=== PATIENT | male | born 1975 | race Caucasian/White ===

== ENCOUNTER 2017-02-08 00:40 | Inpatient (IN) | payer MEDICAID ==
[~2017-02-08] VITALS: Ht 188 cm; Wt 72.4 kg
[~2017-02-08 00:40] MED LIST: ACET325T14 PO; ASPI-515 PO; ENOX40SY4 SQ; FOLI-17 PO; NICO1PAT5 TD; PANT40TA5 PO; THIA100T6 PO
[2017-02-08] MEDS ORDERED: MIDAZOLAM 1 MG/ML, 5ML ONE (00:44)
[2017-02-08] MEDS ORDERED: LORazepam 2 MG/ML, 1ML ONE ×4 (00:50→02:18)
[2017-02-08] MEDS: LORazepam 2 MG/ML, 1ML IVPush PRN ×4 (00:52→01:32)
[2017-02-08] MEDS ORDERED: MAGNESIUM SULFATE 1 GM, THIAMINE 100 MG, FOLIC ACID 1 MG, MVI ADULT 10 ML in SODIUM CHL... IV ONE (01:00)
[2017-02-08] MEDS ORDERED: SODIUM CHLORIDE 0.9% 1,000ML IVBOLUS ONE ×3 (01:00→03:00)
[2017-02-08] MEDS ORDERED: SODIUM CHLORIDE FLUSH 10ML SYR IVF ONE (01:00)
[2017-02-08] MEDS ORDERED: MIDAZOLAM 1 MG/ML, 5ML IM ONE (01:00)
[2017-02-08 01:27] LABS: ASPARTATE AMINO TRANSFERASE 198 U/L (15-37); BLOOD UREA NITROGEN 8 mg/dL (7-18)
[2017-02-08] MEDS ORDERED: DILTIAZEM 5 MG/ML, 5ML IVPush ONE (01:30)
[2017-02-08] MEDS ORDERED: LORazepam 2 MG/ML, 1ML IVPush ONE ×2 (01:30→02:30)
[2017-02-08] MEDS ORDERED: SODIUM CHLORIDE 3% 500 ML IV PRN (01:30)
[2017-02-08] MEDS ORDERED: DILTIAZEM 5 MG/ML, 5ML ONE (01:42)
[2017-02-08] MEDS: DILTIAZEM 125 MG in SODIUM CHLORIDE 0.9% 100 ML IV PRN ×3 (01:43→12:18)
[2017-02-08] MEDS ORDERED: NS + 40MEQ KCL 0 ML IV ONE (01:46)
[2017-02-08 01:47] LABS: HEMATOCRIT 44.5 % (39.2-51.8); HEMOGLOBIN 14.8 g/dL (13.7-18.0); WHITE BLOOD COUNT 7.1 x10^3/uL (3.4-10)
[2017-02-08 01:58] LABS: DIFF TOTAL CELLS COUNTED 100 CELL DIFF
[2017-02-08] MEDS ORDERED: POTASSIUM CHLORIDE 40 MEQ in SODIUM CHLORIDE 0.9% 500 ML IV ONE (02:00)
[2017-02-08 02:21] LABS: VERIFY COUNTS? YES
[2017-02-08 02:24] LABS: LARGE PLATELETS 1+
[2017-02-08] MEDS: POTASSIUM CHLORIDE 20 MEQ, MVI ADULT 10 ML, FOLIC ACID 1 MG, MAGNESIUM SULFATE 1 GM in ... IV SCH (02:47)
[2017-02-08] MEDS ORDERED: PANTOPRAZOLE 40 MG IV IV SCH (03:00)
[2017-02-08] MEDS ORDERED: ENOXAPARIN 40 MG/0.4 ML SQ SCH (03:00)
[2017-02-08] MEDS ORDERED: MORPHINE SULFATE 4 MG/ML, 1ML IV PRN (03:00)
[2017-02-08] MEDS ORDERED: SODIUM CHLORIDE 0.9%, 500ML IVBOLUS PRN ×2 (03:00)
[2017-02-08] MEDS ORDERED: LORazepam 2 MG/ML, 1ML IV PRN ×2 (03:00)
[2017-02-08 03:19] LABS: IS PT STATUS REG ER OR PRE ER? NO
[2017-02-08] MEDS ORDERED: MAGNESIUM SULFATE PMX 4GM/100M 100 ML IV ONE (03:30)
[2017-02-08 04:19] VITALS: BP 146/97
[2017-02-08 04:55] LABS: HEMATOCRIT 44.9 % (39.2-51.8); HEMOGLOBIN 15.2 g/dL (13.7-18.0); WHITE BLOOD COUNT 6.4 x10^3/uL (3.4-10)
[2017-02-08 05:16] LABS: ASPARTATE AMINO TRANSFERASE 161 U/L (15-37); BLOOD UREA NITROGEN 5 mg/dL (7-18)
[2017-02-08 05:18] VITALS: BP 146/97
[2017-02-08 05:34] LABS: DIFF TOTAL CELLS COUNTED 100 CELL DIFF
[2017-02-08 05:38] LABS: ANISOCYTOSIS 1+; LARGE PLATELETS 1+; VERIFY COUNTS? YES
[2017-02-08] MEDS: PANTOPRAZOLE 40 MG IV IV SCH (07:23)
[2017-02-08] MEDS: LORazepam 2 MG/ML, 1ML IV PRN ×16 (07:24→22:31)
[2017-02-08] MEDS: ONDANSETRON 2MG/ML, 2ML IVPB PRN ×2 (07:35→19:28)
[2017-02-08] MEDS: SODIUM CHLORIDE 0.9% 1,000 ML IV SCH ×2 (08:41→16:38)
[2017-02-08 08:58] LABS: IS PT STATUS REG ER OR PRE ER? NO
[2017-02-08] MEDS ORDERED: SODIUM CHLORIDE 0.9%, 500ML IVBOLUS ONE (09:00)
[2017-02-08 15:56] VITALS: BP 116/83
[2017-02-08] MEDS: CHLORDIAZEPOXIDE 25 MG CAPSULE PO SCH (19:57)
[2017-02-08] MEDS ORDERED: CHLORDIAZEPOXIDE 25 MG CAPSULE PO SCH (21:00)
[2017-02-09] MEDS: LORazepam 2 MG/ML, 1ML IV PRN ×11 (00:35→23:35)
[2017-02-09] MEDS: SODIUM CHLORIDE 0.9% 1,000 ML IV SCH ×3 (01:40→20:10)
[2017-02-09] MEDS: POTASSIUM CHLORIDE 20 MEQ, MVI ADULT 10 ML, FOLIC ACID 1 MG, MAGNESIUM SULFATE 1 GM in ... IV SCH (02:42)
[2017-02-09] MEDS: CHLORDIAZEPOXIDE 25 MG CAPSULE PO SCH ×3 (03:51→20:11)
[2017-02-09 04:02] VITALS: BP 100/73
[2017-02-09] MEDS: DILTIAZEM 125 MG in SODIUM CHLORIDE 0.9% 100 ML IV PRN (04:17)
[2017-02-09 05:23] LABS: HEMATOCRIT 44.9 % (39.2-51.8); WHITE BLOOD COUNT 6.9 x10^3/uL (3.4-10)
[2017-02-09 05:39] LABS: ASPARTATE AMINO TRANSFERASE 105 U/L (15-37); BLOOD UREA NITROGEN 2 mg/dL (7-18)
[2017-02-09] MEDS ORDERED: POTASSIUM CHLORIDE 20 MEQ TAB.ER.PRT PO ONE (06:30)
[2017-02-09] MEDS: PANTOPRAZOLE 40 MG IV IV SCH (07:37)
[2017-02-09] MEDS ORDERED: POTASSIUM PHOSPHATE 44 MEQ in SODIUM CHLORIDE 0.9% 500 ML IV ONE (11:30)
[2017-02-09] MEDS: NICOTINE 14MG/24 HR PATCH.TD24 TD SCH (13:10)
[2017-02-09] MEDS ORDERED: FOLIC ACID IV SCH (15:26)
[2017-02-09] MEDS ORDERED: MVI ADULT IV SCH (15:26)
[2017-02-09] MEDS ORDERED: POTASSIUM CHLORIDE IV SCH (15:26)
[2017-02-09] MEDS ORDERED: MAGNESIUM SULFATE IV SCH (15:26)
[2017-02-09] MEDS ORDERED: [UNRECOGNIZED DRUG - OTHER] IV SCH (15:26)
[2017-02-09] MEDS ORDERED: THIAMINE 100 MG in SODIUM CHLORIDE 0.9% 50 ML IV ONE (16:00)
[2017-02-09] MEDS: ONDANSETRON 2MG/ML, 2ML IVPB PRN (20:42)
[2017-02-10] MEDS: SODIUM CHLORIDE 0.9% 1,000 ML IV SCH ×3 (02:40→20:13)
[2017-02-10] MEDS: LORazepam 2 MG/ML, 1ML IV PRN (02:40)
[2017-02-10 04:00] VITALS: BP 120/86
[2017-02-10] MEDS: CHLORDIAZEPOXIDE 25 MG CAPSULE PO SCH ×3 (04:05→21:29)
[2017-02-10 04:51] LABS: HEMATOCRIT 46.2 % (39.2-51.8); HEMOGLOBIN 15.4 g/dL (13.7-18.0); WHITE BLOOD COUNT 5.5 x10^3/uL (3.4-10)
[2017-02-10 05:01] LABS: BLOOD UREA NITROGEN < 1 mg/dL (7-18)
[2017-02-10 05:03] LABS: ASPARTATE AMINO TRANSFERASE 81 U/L (15-37)
[2017-02-10] MEDS ORDERED: POTASSIUM CHLORIDE 20 MEQ TAB.ER.PRT PO ONE (07:30)
[2017-02-10] MEDS: FOLIC ACID 1 MG TABLET PO SCH (07:59)
[2017-02-10] MEDS: THIAMINE 100MG TABLET PO SCH (08:00)
[2017-02-10] MEDS: LORazepam 2 MG/ML, 1ML IVPush PRN ×3 (08:09→20:30)
[2017-02-10 11:42] VITALS: BP 114/85
[2017-02-10] MEDS: NICOTINE 14MG/24 HR PATCH.TD24 TD SCH (12:00)
[2017-02-10 13:13] VITALS: BP 117/73
[2017-02-10 18:27] VITALS: BP 110/74
[2017-02-11 02:00] VITALS: BP 115/75
[2017-02-11] MEDS: SODIUM CHLORIDE 0.9% 1,000 ML IV SCH (03:30)
[2017-02-11] MEDS: CHLORDIAZEPOXIDE 25 MG CAPSULE PO SCH ×3 (04:00→20:55)
[2017-02-11 08:00] VITALS: BP 104/76
[2017-02-11 08:47] LABS: HEMOGLOBIN 15.2 g/dL (13.7-18.0)
[2017-02-11 08:50] LABS: BLOOD UREA NITROGEN 3 mg/dL (7-18)
[2017-02-11] MEDS: NICOTINE 14MG/24 HR PATCH.TD24 TD SCH (12:00)
[2017-02-11] MEDS: POTASSIUM CHLORIDE 20 MEQ, MAGNESIUM SULFATE 1 GM, THIAMINE 100 MG, FOLIC ACID 1 MG, MV... IV SCH (12:48)
[2017-02-11] MEDS: THIAMINE 100MG TABLET PO SCH (12:49)
[2017-02-11] MEDS: FOLIC ACID 1 MG TABLET PO SCH (12:49)
[2017-02-11] MEDS ORDERED: LORazepam 2 MG/ML, 1ML ONE (16:49)
[2017-02-11] MEDS: LORazepam 2 MG/ML, 1ML IVPush PRN ×2 (16:53→20:55)
[2017-02-11] MEDS ORDERED: LORazepam 2 MG/ML, 1ML IVPush PRN (17:00)
[2017-02-11 19:58] VITALS: BP 130/79
[2017-02-12 01:40] VITALS: BP 132/66
[2017-02-12] MEDS: CHLORDIAZEPOXIDE 25 MG CAPSULE PO SCH ×3 (04:00→20:15)
[2017-02-12 06:03] LABS: BLOOD UREA NITROGEN 8 mg/dL (7-18)
[2017-02-12 07:08] VITALS: BP 96/62
[2017-02-12] MEDS ORDERED: POTASSIUM CHLORIDE 20 MEQ TAB.ER.PRT PO ONE (07:30)
[2017-02-12] MEDS: FOLIC ACID 1 MG TABLET PO SCH (09:49)
[2017-02-12] MEDS: THIAMINE 100MG TABLET PO SCH (09:49)
[2017-02-12] MEDS: NICOTINE 14MG/24 HR PATCH.TD24 TD SCH (13:03)
[2017-02-12] MEDS: POTASSIUM CHLORIDE 20 MEQ, MAGNESIUM SULFATE 1 GM, THIAMINE 100 MG, FOLIC ACID 1 MG, MV... IV SCH (13:03)
[2017-02-12] MEDS ORDERED: LORazepam 1MG TABLET PO PRN (13:30)
[2017-02-12 19:48] VITALS: BP 111/72
[2017-02-12 19:51] VITALS: BP 111/72
[2017-02-13 02:30] VITALS: BP 117/70
[2017-02-13 07:40] VITALS: BP 111/74
[2017-02-13] MEDS: THIAMINE 100MG TABLET PO SCH (08:45)
[2017-02-13] MEDS: FOLIC ACID 1 MG TABLET PO SCH (08:45)
[2017-02-13] MEDS: CHLORDIAZEPOXIDE 25 MG CAPSULE PO SCH ×2 (08:45→20:37)
[2017-02-13 12:43] VITALS: BP 101/68
[2017-02-13] MEDS: POTASSIUM CHLORIDE 20 MEQ, MAGNESIUM SULFATE 1 GM, THIAMINE 100 MG, FOLIC ACID 1 MG, MV... IV SCH (13:12)
[2017-02-13] MEDS: NICOTINE 14MG/24 HR PATCH.TD24 TD SCH (13:12)
[2017-02-13 20:00] VITALS: BP 123/85
[2017-02-14 02:04] VITALS: BP 110/71
[2017-02-14 08:54] VITALS: BP 115/74
[2017-02-14] MEDS: THIAMINE 100MG TABLET PO SCH (09:05)
[2017-02-14] MEDS: FOLIC ACID 1 MG TABLET PO SCH (09:05)
[2017-02-14] MEDS: CHLORDIAZEPOXIDE 25 MG CAPSULE PO SCH ×2 (09:05→20:59)
[2017-02-14] MEDS: POTASSIUM CHLORIDE 20 MEQ, MAGNESIUM SULFATE 1 GM, THIAMINE 100 MG, FOLIC ACID 1 MG, MV... IV SCH (11:53)
[2017-02-14] MEDS: NICOTINE 14MG/24 HR PATCH.TD24 TD SCH (12:00)
[2017-02-14 15:04] VITALS: BP 107/61
[2017-02-14 20:59] VITALS: BP 108/69
[2017-02-15 01:25] VITALS: BP 125/74
[2017-02-15 08:37] VITALS: BP 106/68
[2017-02-15] MEDS: THIAMINE 100MG TABLET PO SCH (08:42)
[2017-02-15] MEDS: FOLIC ACID 1 MG TABLET PO SCH (08:42)
[2017-02-15] MEDS: CHLORDIAZEPOXIDE 25 MG CAPSULE PO SCH (08:42)
[2017-02-15 09:15] LABS: BLOOD UREA NITROGEN 13 mg/dL (7-18)
[2017-02-15 09:18] LABS: HEMATOCRIT 41.9 % (39.2-51.8); HEMOGLOBIN 13.9 g/dL (13.7-18.0); WHITE BLOOD COUNT 7.2 x10^3/uL (3.4-10)
[2017-02-15 09:21] LABS: ASPARTATE AMINO TRANSFERASE 57 U/L (15-37)
[2017-02-15 09:55] LABS: DIFF TOTAL CELLS COUNTED 100 CELL DIFF
[2017-02-15 09:58] LABS: VERIFY COUNTS? YES
[2017-02-15] MEDS ORDERED: MULT1TAB60 PO (10:44)
[2017-02-15] MEDS ORDERED: CHLO25CA9 PO (10:44)
[2017-02-15] MEDS: POTASSIUM CHLORIDE 20 MEQ, MAGNESIUM SULFATE 1 GM, THIAMINE 100 MG, FOLIC ACID 1 MG, MV... IV SCH (10:58)
[2017-02-15] MEDS: NICOTINE 14MG/24 HR PATCH.TD24 TD SCH (12:00)
== END 2017-02-15 13:58 | disposition home or self-care (01) | DRG 897 ==
LOC: ED 01:23 → EDIP 02:27 → CCU 03:03 → 4WST 02-10 11:56 → 4EST 02-10 16:36
PROVIDERS: ADMIT Internal Medicine; ATTEND Internal Medicine
DX: F10.231 Alcohol dependence with withdrawal delirium (principal); E87.1 Hypo-osmolality and hyponatremia; I48.91 Unspecified atrial fibrillation; D53.9 Nutritional anemia, unspecified; D69.6 Thrombocytopenia, unspecified; E83.42 Hypomagnesemia; E87.6 Hypokalemia; F12.90 Cannabis use, unspecified, uncomplicated; F17.210 Nicotine dependence, cigarettes, uncomplicated; K70.10 Alcoholic hepatitis without ascites; R26.81 Unsteadiness on feet; I48.0 Paroxysmal atrial fibrillation
CPT/HCPCS: 36415; 71010; 80048; 80053; 80307; 82607; 82746; 83605; 83735; 84100; 84443; 84484; 85025; 87081; 87324; 93005; 93306; 96365; 96366; 96368; 96372; 96375; J2250; J2405; J3411; J3475; J3480; J7042; C9113; J2060; J7030; J7040